=== PATIENT | female | born 1995 | race Caucasian/White ===

== ENCOUNTER 2023-02-27 15:58 | Emergency (ER) | payer MEDICAID ==
[~2023-02-27] VITALS: Ht 180.3 cm; Wt 49.9 kg
[2023-02-27 16:03] VITALS: BP_SYST 120; PULSE 78; RESP 19; TEMP 99.6; O2SAT 100
[2023-02-27 16:25] LABS: BILIRUBIN,URINE NEGATIVE (NEGATIVE); BLOOD, URINE 2+ (NEGATIVE); COLOR,URINE YELLOW (YELLOW); GLUCOSE,URINE NEGATIVE (NEGATIVE); KETONES,URINE NEGATIVE (NEGATIVE); LEUKOCYTE ESTERASE ,URINE TRACE (NEGATIVE); NITRITE, URINE NEGATIVE (NEGATIVE); PROTEIN URINE 1+ (NEGATIVE)
[2023-02-27 16:27] LABS: HCG,QUAL RESULT NEGATIVE (NEGATIVE)
[2023-02-27 16:31] LABS: CLARITY/URINE HAZY (CLEAR)
[2023-02-27 16:35] LABS: BACTERIA,URINE FEW /HPF (None Seen); MUCUS,URINE 2+ /LPF (None Seen); WBC,URINE 20-50 /HPF (0-3)
[2023-02-27] MEDS ORDERED: IPRATROPIUM BROM 0.5 MG/2.5 ML VIAL.NEB (ATROVENT) INH ONE (19:15)
[2023-02-27] MEDS ORDERED: KETOROLAC TROMETHAMINE 60 MG/2 ML VIAL IM ONE (19:15)
[2023-02-27] MEDS ORDERED: ALBUTEROL SULFATE 0.083% 2.5 MG/3 ML VIAL.NEB INH ONE (19:15)
[2023-02-27] MEDS ORDERED: predniSONE 20 MG TABLET PO ONE (19:15)
[2023-02-27] MEDS ORDERED: levoFLOXacin 500 MG TABLET PO ONE (20:00)
[2023-02-27] MEDS ORDERED: ALBMDI INH (20:14)
[2023-02-27] MEDS ORDERED: PRED20TA PO (20:14)
[2023-02-27] MEDS ORDERED: LEVO750T64 PO (20:14)
[2023-02-27 20:26] VITALS: BP_SYST 118; PULSE 75; RESP 18; TEMP 99.1; O2SAT 97
== END 2023-02-27 20:26 | disposition home or self-care (01) ==
LOC: SED 15:58
DX: N39.0 Urinary tract infection, site not specified (principal); J45.901 Unspecified asthma with (acute) exacerbation; F11.20 Opioid dependence, uncomplicated; R35.0 Frequency of micturition; R50.9 Fever, unspecified; R05.9 Cough, unspecified; F17.200 Nicotine dependence, unspecified, uncomplicated; Z88.0 Allergy status to penicillin; Z88.1 Allergy status to other antibiotic agents; Z79.899 Other long term (current) drug therapy
CPT/HCPCS: 99283; 81000; 84703; 87086; 94640; 96372; J7512; J1885